=== PATIENT | female | born 1985 | race Caucasian/White ===

== ENCOUNTER 2016-04-28 08:06 | Inpatient (IN) | payer MEDICAID ==
[2016-04-28] VITALS (26 sets, daily range): BP systolic 77–148; BP diastolic 52–124; PULSE 84–126; RESP 18; TEMP 99
[~2016-04-28] VITALS: Ht 167.6 cm; Wt 79.0 kg
[~2016-04-28 08:06] MED LIST: OXYC-360 PO; PREN0.01 PO
[2016-04-28] MEDS ORDERED: LACTATED RINGER'S 1000 ML INJ 1,000 ML IV PRN (09:03)
[2016-04-28 09:04] LABS: BACTERIA, URINE MOD /hpf; BLOOD, URINE SMALL (NEG); COMMENT (UR) CULTURE INDICATED; CULTURE IF INDICATED CULTURE INDICATED; GLUCOSE,URINE NEG (NEG); KETONE, URINE NEG (NEG); MUCUS URINE FEW /lpf (OCC); NITRITE,URINE NEG (NEG); RENAL EPITHELIAL CELLS <1 /hpf; SQUAMOUS EPITHELIAL CELL URINE 4 /hpf (0-5); TRANSITIONAL EPI CELLS, URINE 1 /hpf; URINE COLOR YELLOW (YELLW/STRAW)
--- NOTE | 2016-04-28 09:14 | HHI.HP ---
HPI Chief Complaint Contractions Date Seen: Apr 28, 2016 Travel History International Travel<30 Days: No Contact w/Intl Traveler<30Days: No Known Affected Area: No History of Present Illness HPI This patient is a 31-year-old white female previous 1, 39 weeks gestation, who presents combining of regular contractions since 3 AM that are painful, no bleeding or rupture the membranes, there is decreased movement, heart rate tracing is nonreactive at this time with moderate variability just no significant acceleration, no deceleration Para: 2 : 3 History Past Medical History Medical History: Denies Significant Hx Obstetric History Obstetric History One vaginal delivery and 1 section and currently the patient wants to , she understands risk and benefits that procedure that is considered safe to our there is a 1% uterine rupture rate that she is aware of Past Surgical History Narrative Surgical One section due to low fluid around the baby Family History Family History: Negative Social History Alcohol Use: No Tobacco Use: No Substance Abuse: No Allergies-Medications (Allergen,Severity, Reaction): Coded Allergies: No Known Allergies (Verified , 04/28/16) Home Meds Reported Medications Oxycodone/Acetaminophen (Percocet)5 Mg/325 Mg Tab1-2 Tab PO Q4HPRN #50 FOR PAIN 03/31/11 Vitamins 1 Tab PO DAILY Ref 0 09/09/08 Review of Systems General / Constitutional: No: Fever, Weight Gain, Chills, Other Eyes: No: Diploplia, Blurred Vision, Visual changes, Pain, Photophobia HENT: No: Headaches, Vertigo, Lightheadedness Cardiovascular: No: Irregular Rhythm, Chest Pain or Discomfort, Palpitations, Tachycardia, Syncope, Varicosities, Edema, Cyanosis Respiratory: No: Cough, Short of Breath, Other Gastrointestinal: Abdominal Pain, No: Nausea, Vomiting, Diarrhea Genitourinary: No: Decreased Urinary Output, Oliguria Musculoskeletal: No: Limited ROM, Weakness, Cramping, Edema, Pain Skin: No Rash, No Itching, No Dryness, No Lumps, No Change in Pigmentation, No Change in Nails, No Alopecia, No Lesions Neurologic: No: Weakness, Dizziness, Syncope, Focal Abnormalities, Coordination Problem, Headache, Slurred Speech, Seizures Psychiatric: No: Depression, Suicidal Ideations, Homicidal Ideation Endocrine: No: Heat Intolerance, Cold Intolerance, Polydipsia, Polyuria, Other Physical Exam Narrative GENERAL: Well-nourished, well-developed patient. SKIN: Warm and dry. HEAD: Normocephalic and atraumatic. EYES: No scleral icterus. No injection or drainage. ENT: No nasal drainage noted. Mucous membranes pink. Airway patent. NECK: Supple, trachea midline. No JVD. CARDIOVASCULAR: Regular rate and rhythm without murmurs, gallops, or rubs. RESPIRATORY: Breath sounds equal bilaterally. No accessory muscle use. BREASTS: Bilateral exam showed no masses , no retractions, no nipple discharge. ABDOMEN/GI: Abdomen soft, non-tender, bowel sounds present, no rebound, no guarding Gravid to [-38] weeks size Fundal Height: [37 cm-] GENITOURINARY: External Genitalia: intact and normal in appearance BUS glands: [-] Cervix: [-] Dilatation: [-4] Effacement: [-40] Station: [-3] Presentation: [vtx-] Membranes: [intact BBOW] Uterine Contractions: [reg-] FHT's: Category: [1-] Baseline: [-144] Reactive: [no-] Variability: [-mod] Decels: [none-] EXTREMITIES: No cyanosis or edema. BACK: Nontender without obvious deformity. No CVA tenderness. NEUROLOGICAL: Awake and alert. Motor and sensory grossly within normal limits. Five out of 5 muscle strength in all muscle groups. Normal speech. Data Data Orders Urinalysis - C+S If Indicated (04/28/16 08:43) Urine Culture (04/28/16 08:10) Ob (2e) Additional Admit Info (04/28/16 09:04) Admit To Inpatient (04/28/16 ) Vital Signs (Adult) .Per protocol (04/28/16 09:03) ^ Heart (04/28/16 09:03) ^ Amnioinfusion (04/28/16 09:03) Urinary Catheter Management .ONCE (04/28/16 09:03) Diet Liquid (04/28/16 Breakfast) Lactated Ringer's 1000 Ml Inj (Lr 1000 M (04/28/16 09:03) Lactated Ringer's 1000 Ml Inj (Lr 1000 M (04/28/16 09:03) Sodium Chlorid 0.9% 500 Ml Inj (Ns 500 M (04/28/16 09:15) Sodium Chlor 0.9% 1000 Ml Inj (Ns 1000 M (04/28/16 09:23) Lidocaine 1% Inj (50 Ml) (Xylocaine 1% I (04/28/16 09:15) Citric Acid-Sodium Citrate Liq (Bicitra (04/28/16 09:15) Fentanyl Inj (Fentanyl Inj) (04/28/16 09:15) Fentanyl Inj (Fentanyl Inj) (04/28/16 09:15) Complete Blood Count With Diff (04/28/16 09:03) Hold Clot (04/28/16 09:03) Abo/Rh Blood Type (04/28/16 09:03) Resp Oxygen Non Rebreathe Mask (04/28/16 ) ^ Epidural / Intrathecal Infus (04/28/16 09:03) Oxytocin 30 Units-500ml Premix (Pitocin (04/28/16 09:15) Lidocaine 1% Inj (50 Ml) (Xylocaine 1% I (04/28/16 09:15) Light Mineral Oil (Muri-Lube Oil) (04/28/16 09:15) Labs amnisure neg Laboratory Tests Test 04/28/16 08:10 Urine Color YELLOW Urine Turbidity HAZY Urine pH 7.0 Urine Specific Deary 1.015 Urine Protein TRACE Urine Glucose (UA) NEG Urine Ketones NEG Urine Occult Blood SMALL Urine Nitrite NEG Urine Bilirubin NEG Urine Urobilinogen LESS THAN 2.0 Urine Leukocyte Esterase SMALL Urine RBC 1 Urine WBC 2 Urine Squamous Epithelial 4 Cells Urine Transitional Epithelial 1 Cells Urine Renal Epithelial Cells <1 Urine Bacteria MOD Urine Mucus FEW Microscopic Urinalysis Comment CULTURE INDICATED Date/Time Procedure Status Source Growth 04/28/16 08:10 Urine Culture Received Urine Clean Catch Pending Assessment/Plan Assessment and Plan Patient is 31-year-old white female previous 1 ,39 wks, now for delivery presenting complaining of contractions since 3 AM with no bleeding or rupture the membranes. Baby is has decreased movement and currently a nonreactive strip with moderate variability but no significant accelerations. This is still a category 1 strip, no decelerations noted patient 's cervix is 4 cm 40% -3 with a bulging bag water vertex presentation she has a low-grade fever of 99 .3 And no uterine tenderness with plan to admit this patient for early latent phase labor to allow delivery low-grade fever and nonreactive strip another reason to keep patient in the hospital and the facilitate delivery. The covering physician for Dr. Borja is Dr. Maldonado will give her a call. Josiah Grant II, MD Apr 28, 2016 09:14
[2016-04-28] MEDS ORDERED: MINERAL OIL 10 ML VIAL TOPICAL PRN (09:15)
[2016-04-28] MEDS ORDERED: LIDOCAINE HCL 1% 50 ML VIAL INFIL PRN (09:15)
[2016-04-28] MEDS ORDERED: OXYTOCIN 30 UNITS-500ML PREMIX 500 ML IV ONE (09:15)
[2016-04-28] MEDS ORDERED: LIDOCAINE HCL 1% 50 ML VIAL I-DERMAL PRN (09:15)
[2016-04-28] MEDS ORDERED: SODIUM CHLORID 0.9% 500 ML INJ 500 ML IV PRN (09:15)
[2016-04-28] MEDS ORDERED: CITRIC ACID-SODIUM CITRATE LIQ 30 ML UDC PO SCH (09:15)
[2016-04-28] MEDS ORDERED: SODIUM CHLOR 0.9% 1000 ML INJ 1,000 ML IV PRN (09:23)
[2016-04-28 10:11] LABS: AUTOMATED NEUTROPHIL # 8.2 TH/MM3 (1.8-7.7); BASOPHIL % 0.3 % (0.0-2.0); EOSINOPHIL % 0.3 % (0.0-4.0); HEMATOCRIT 35.2 % (35.0-46.0); HEMO FLAGS DIFF FINAL; LYMPHOCYTE # 0.7 TH/MM3 (1.0-4.8); MEAN CORPUSCULAR HEMOGLOBIN 29.1 PG (27.0-34.0); MEAN CORPUSCULAR HGB CONC 34.6 % (32.0-36.0); MONO % 6.5 % (0.0-8.0); NEUT % 85.9 % (16.0-70.0); PLATELET COUNT 164 TH/MM3 (150-450); RED BLOOD COUNT 4.19 MIL/MM3 (4.00-5.30); RED CELL DISTRIBUTION WIDTH 14.5 % (11.6-17.2); WHITE BLOOD COUNT 9.5 TH/MM3 (4.0-11.0)
[2016-04-28] MEDS ORDERED: fentaNYL 2MCG-BUPIV 0.125% INJ 100 ML ONE (10:30)
[2016-04-28] MEDS ORDERED: cefTRIAXone INJ 1,000 MG in SODIUM CHLORIDE 0.9% INJ 100 ML IV ONE (11:15)
[2016-04-28] MEDS ORDERED: OXYTOCIN 30 UNITS-500ML PREMIX 500 ML IV SCH (11:15)
[2016-04-28] MEDS: LACTATED RINGER'S 1000 ML INJ 1,000 ML IV SCH ×2 (11:34→12:47)
--- NOTE | 2016-04-28 14:49 | PD.OB.DELI ---
Delivery Date: Apr 28, 2016 Anesthesia: Epidural Episiotomy: None Vaginal Delivery: Normal Presentation: Occiput anterior Nuchal Cord: None : Male One Minute : 8 Five Minute : 9 Weight: 4040g Infant Care: Suctioned, Spontaneous crying Placenta: Spontaneous delivery Laceration: Perineal laceration, 1 deg Repair: Chromic interrupted (right labial), Chromic running (perineal) Additional Information EBL 400ml Thick meconium Nae Maldonado MD Apr 28, 2016 14:49
--- NOTE | 2016-04-28 14:53 | HHI.DCPOC ---
Discharge Care Plan Diagnosis: (1) (vaginal after ) Your Health Problems Are: Vaginal delivery Report Symptoms to Your Doctor -Temperate above 100.5 degrees -Redness, of incision or excessive or foul smelling drainage -Unusual pain or calf pain -Increased vaginal bleeding -Painful or difficulty urinating -Feelings of extreme sadness or anxiety after 2 weeks Goals to Promote Your Health * To prevent worsening of your condition and complications * To maintain your health at the optimal level Directions to Meet Your Goals Take your medications as prescribed Follow your dietary instruction Follow activity as directed Ensure plenty of rest for recovery Drink fluids for hydration Keep your appointments as scheduled Take your immunizations and boosters as scheduled If your symptoms worsen call your PCP, if no PCP go to Urgent Care Center or Emergency Room Smoking is Dangerous to Your Health. Avoid second hand smoke Call the 24-hour crisis hotline for domestic abuse at Nae Maldonado MD Apr 28, 2016 14:52
[2016-04-28] MEDS ORDERED: BENZOCAINE 20% TOPICAL SPRAY 60 ML CAN TOPICAL PRN (15:00)
[2016-04-28] MEDS ORDERED: ONDANSETRON ODT 4 MG TAB PO PRN (15:00)
[2016-04-28] MEDS ORDERED: oxyCODONE/ACETAMINOPHEN 5 MG/325 MG TAB PO PRN (15:00)
[2016-04-28] MEDS ORDERED: WITCH HAZEL 50%/GLYCERIN 12.5% 40 PAD JAR TOPICAL PRN (15:00)
[2016-04-28] MEDS ORDERED: ZOLPIDEM TARTRATE 5 MG TAB PO PRN (15:00)
[2016-04-28] MEDS ORDERED: DOCUSATE SODIUM 50 MG/SENNA 8.6 MG TAB PO PRN (15:00)
[2016-04-28] MEDS ORDERED: SODIUM CHLORIDE 0.9% FLUSH 5 ML FLUSH IV PRN (15:00)
[2016-04-28] MEDS ORDERED: ALUMINUM/MAGNESIUM/SIMETH 30 ML CUP PO PRN (15:00)
[2016-04-28] MEDS ORDERED: fentaNYL 2MCG-BUPIV 0.125% INJ 100 ML EPIDURAL SCH (15:30)
[2016-04-28] MEDS ORDERED: ePHEDrine/NS 50 MG/5 ML SYR IV PRN (15:30)
[2016-04-28] MEDS ORDERED: DO NOT ADMINISTER ANTICOAGULANTS XX PRN (15:30)
[2016-04-28] MEDS ORDERED: NO SYSTEM NARCOTICS XX PRN (15:30)
[2016-04-28] MEDS ORDERED: ACETAMINOPHEN 1000 MG/100 ML VIAL IV ONE (15:45)
[2016-04-28] MEDS ORDERED: AMPICILLIN/SULBAC 3 GM/NS 100 ML IV ONE ×2 (15:45)
[2016-04-28] MEDS: IBUPROFEN 600 MG TAB PO PRN (15:55)
[2016-04-28] MEDS ORDERED: DIPHTH/TETANUS/ACEL PERTUSSIS (BOOSTER) 0.5 ML VIAL/PFS IM ONE (16:00)
[2016-04-28] MEDS ORDERED: MEASLES, MUMPS, RUBELLA VACCINE 0.5 ML VIAL SQ ONE (16:00)
[2016-04-29] MEDS: SODIUM CHLORIDE 0.9% FLUSH 5 ML FLUSH IV SCH ×2 (03:54→20:34)
[2016-04-29] MEDS: IBUPROFEN 600 MG TAB PO PRN ×3 (03:56→22:23)
[2016-04-29] MEDS: ACETAMINOPHEN 325 MG TAB PO PRN ×4 (03:56→22:24)
[2016-04-29 07:50] VITALS: BP 109/62; PULSE 65; RESP 16; TEMP 97.6
--- NOTE | 2016-04-29 08:44 | HHI.OB ---
Subjective Post Day: 1 Remarks PPD#1, c/o cough, nonproductive Objective Vitals/I&O Vital Signs Date Time Temp Pulse Resp B/P Pulse Ox O2 Delivery O2 Flow Rate FiO2 04/28/16 13:45 95 110/72 04/28/16 13:31 103 100/64 04/28/16 13:18 102 116/70 04/28/16 13:16 117 90/73 04/28/16 13:11 99.0 18 04/28/16 13:01 85 107/73 04/28/16 12:45 94 107/56 04/28/16 12:31 84 100/57 04/28/16 12:15 103 117/60 04/28/16 12:01 86 99/52 04/28/16 11:46 86 103/66 04/28/16 11:30 102 118/60 04/28/16 11:16 93 110/61 04/28/16 11:00 90 113/66 04/28/16 10:58 106/60 04/28/16 10:58 95 04/28/16 10:54 90 04/28/16 10:54 111/61 04/28/16 10:52 88 112/58 04/28/16 10:50 94 04/28/16 10:48 87 117/56 04/28/16 10:45 86 04/28/16 10:45 104 115/57 04/28/16 10:44 99 116/67 04/28/16 10:43 108 148/124 04/28/16 10:40 116 129/78 04/28/16 10:40 116 04/28/16 10:32 126 121/72 04/28/16 10:31 98 77/59 04/28/16 10:18 120 104/64 Objective Remarks GENERAL: Well-nourished, well-developed patient. CARDIOVASCULAR: Regular rate and rhythm without murmurs, gallops, or rubs. RESPIRATORY: Breath sounds equal bilaterally. No accessory muscle use. ABDOMEN/GI: Abdomen soft, non-tender. Fundus: Firm, non-tender at umbilicus. GENITOURINARY: Light to moderate bleeding. EXTREMITIES: No cyanosis or edema, non-tender, without signs of DVT. Medications and IVs Current Medications Medications (Trade) Dose Ordered Sig/Leopoldo Route Start Time Stop Time Status Last Admin (NS Flush) 2 ml BID IV 04/28/16 21:00 04/29/16 03:54 (NS Flush) 2 ml UNSCH PRN IV 04/28/16 15:00 (Tylenol) 650 mg Q4H PRN PO 04/28/16 15:00 04/29/16 03:56 (Motrin) 600 mg Q6H PRN PO 04/28/16 15:00 04/29/16 03:56 (Percocet 5-325 Mg) 1 tab Q4H PRN PO 04/28/16 15:00 (Americaine 20% Top Spr) 1 spray Q4H PRN TOPICAL 04/28/16 15:00 04/29/16 03:54 (Tucks Pads) 1 applic QID PRN TOPICAL 04/28/16 15:00 04/29/16 03:53 (Katrina-Colace) 2 tab Q12H PRN PO 04/28/16 15:00 (Ambien) 5 mg HS PRN PO 04/28/16 15:00 (Mag-Al Plus Susp Liq) 15 ml Q8H PRN PO 04/28/16 15:00 (Zofran Odt) 4 mg Q6H PRN PO 04/28/16 15:00 Miscellaneous Information No systemic narcotics to be given except... UNSCH PRN XX 04/28/16 15:30 04/29/16 15:29 Miscellaneous Information DO NOT ADMINISTER ANY ANTICOAGUL... UNSCH PRN XX 04/28/16 15:30 04/29/16 15:29 (fentaNYL 2MCG-BUPIV 0.125% INJ) 100 ml @ 0 mls/hr TITRATE EPIDURAL 04/28/16 15:30 (ePHEDrine/NS 50 MG/5 ML SYR) 10 mg UNSCH PRN IV 04/28/16 15:30 04/29/16 15:29 (Tessalon) 100 mg TID PRN PO 04/29/16 05:30 Assessment/Plan Assessment and Plan PPD#1, , c/o cough,no F/C. Discharge Planning Tomorrow Rohit Conroy MD Apr 29, 2016 08:44
[2016-04-29] MEDS: BENZONATATE 100 MG CAP PO PRN (08:56)
[2016-04-29] MEDS: guaiFENesin SOLUTION 200 MG/10 ML CUP PO PRN ×2 (14:33→22:23)
[2016-04-29 19:39] VITALS: BP 118/69; PULSE 69; RESP 16; TEMP 98
[2016-04-30] MEDS ORDERED: SENN1TAB PO (08:29)
[2016-04-30] MEDS ORDERED: IBUP-232 PO (08:29)
[2016-04-30] MEDS: BENZONATATE 100 MG CAP PO PRN (10:06)
[2016-04-30] MEDS: guaiFENesin SOLUTION 200 MG/10 ML CUP PO PRN (11:50)
[2016-04-30] MEDS: ACETAMINOPHEN 325 MG TAB PO PRN (11:51)
== END 2016-04-30 16:34 | disposition home or self-care (01) | DRG 775 ==
LOC: HOBED 08:06 → H2EA 09:07 → H1EA 16:40
PROVIDERS: ADMIT Obstetrics & Gynecology; ATTEND Obstetrics & Gynecology
PROC: 10E0XZZ Delivery of Products of Conception, External Approach (ICD-10-PCS; principal; 2016-04-28)
PROC: 0HQ9XZZ Repair Perineum Skin, External Approach (ICD-10-PCS; 2016-04-28)
PROC: 00HU33Z Insertion of Infusion Device into Spinal Canal, Percutaneous Approach (ICD-10-PCS; 2016-04-28)
PROC: 3E0R3CZ (ICD-10-PCS; 2016-04-28)
DX: O36.8130 Decreased fetal movements, third trimester, not applicable or unspecified (principal); O34.211 Maternal care for low transverse scar from previous cesarean delivery; O77.0 Labor and delivery complicated by meconium in amniotic fluid; O70.0 First degree perineal laceration during delivery; Z3A.39 39 weeks gestation of pregnancy; Z37.0 Single live birth
CPT/HCPCS: 59025; 81001; 84112; 85025; 87086; 99285; J0131; J0295; J0696; J2590; J7120